=== PATIENT | male | born 1985 | race African-American/Black ===

== ENCOUNTER 2020-07-13 21:10 | Inpatient (IN) ==
[2020-07-13] MEDS ORDERED: SODIUM CHLORIDE 0.9% 1,000 ML IV STA (23:00)
[2020-07-13 23:42] LABS: Basophils # 0.1 10*3/uL (0.0-0.2); Basophils % 0.3 % (0.0-0.8); Hemoglobin 13.8 GM/DL (14.0-18.0); Immature Granulocytes % 0.9 %; Immature Granulocytes Absolute 0.24 #; Lymphocytes # 1.9 10*3/uL (1.4-4.0); Lymphocytes % 7.1 % (21.2-54.2); Mean Corpuscular HGB Conc 36.3 GM/DL (32-36); Mean Corpuscular Volume 95.5 FL (87-102); Monocytes % 8.4 % (1.7-12.7); Neutrophils % 83.3 % (38.7-73.9); Platelet Count 285 T/CUMM (130-400); Red Blood Count 3.98 MC/CUMM (3.8-5.5); Red Cell Distribution Width 12.2 % (9.3-17.3); White Blood Count 26.2 T/CUMM (4-12)
[2020-07-14 00:07] LABS: Rheumatoid Factor < 15 IU/ML (<15); Uric Acid 2.4 MG/DL (3.5-7.2)
[2020-07-14 00:08] LABS: Albumin 3.6 G/DL (3.4-5.0); Bilirubin,Total 0.6 MG/DL (0.2-1.0); Osmolality,Calculated 274.7 MOS/KG (273-304); Potassium 4.3 MMOL/L (3.5-5.1); Total Protein 7.8 G/DL (6.4-8.2)
[2020-07-14 01:04] LABS: Sedimentation Rate-Westergren 91 MM/HR (0-15)
[2020-07-14] MEDS ORDERED: KETOROLAC 30 MG/1 ML VIAL IV STA (01:48)
[2020-07-14 03:27] LABS: Band Neutrophils 2 % (0-10); Lymphocytes 9 % (20-55); Platelet Estimate Normal; Segmented Neutrophils 81 % (50-85); Total Cells Counted 100
[2020-07-14] MEDS ORDERED: ACETAMINOPHEN 325 MG TABLET PO PRN (04:40)
[2020-07-14] MEDS ORDERED: DOCUSATE SODIUM 100 MG CAPSULE PO PRN (04:40)
[2020-07-14] MEDS ORDERED: DEXTROSE 50% 25 GM/50 ML VIAL IV PRN (04:40)
[2020-07-14] MEDS ORDERED: GLUCAGON 1 MG VIAL IM PRN (04:40)
[2020-07-14] MEDS ORDERED: KETOROLAC 30 MG/1 ML VIAL IV PRN (04:52)
[2020-07-14] MEDS: cefTRIAXone 2,000 MG in SODIUM CHLORIDE 0.9% 100 ML IV SCH (05:15)
[2020-07-14 05:38] LABS: Blood, Urine Negative (Negative); Glucose,Urine (UA) Negative (Negative); Hyaline Casts,Urine 1 /LPF (0-3); Ketones,Urine Negative (Negative); Mucus,Urine Occasional /LPF (Occasional); Nitrite,Urine Negative (Negative); Protein,Urine 30 MG/DL; RBC,Urine 5 /HPF (0-4); Renal Epithelial Cells,Urine Occasional /HPF (<1); Squamous Epithelial Cell,Urine Occasional /HPF (0-10); Urine Appearance CLEAR (Clear); Urine Color Yellow (Yellow); Urine Specific Gravity 1.028 (1.001-1.035); Urine Urobilinogen < 2.0 EU/DL (0.2-1.0)
[2020-07-14 05:58] LABS: Bilirubin,Urine Small mg/dL (Negative)
[2020-07-14] MEDS: SODIUM CHLORIDE 0.9% 1,000 ML IV SCH ×3 (06:26→21:19)
[2020-07-14 06:50] LABS: Cyclic Citrull Peptide Interp Negative
[2020-07-14] MEDS ORDERED: INDOMETHACIN 50 MG CAPSULE PO SCH (09:00)
[2020-07-14] MEDS: predniSONE 20 MG TABLET PO SCH ×2 (10:05→21:18)
[2020-07-14] MEDS: DOXYCYCLINE HYCLATE INJ 100 MG in SODIUM CHLORIDE 0.9% 100 ML IV SCH ×2 (10:27→18:23)
[2020-07-14] MEDS: INDOMETHACIN 25 MG CAPSULE PO SCH ×2 (15:14→21:18)
[2020-07-15] MEDS: cefTRIAXone 2,000 MG in SODIUM CHLORIDE 0.9% 100 ML IV SCH (04:37)
[2020-07-15 05:22] LABS: Basophils # 0.1 10*3/uL (0.0-0.2); Basophils % 0.2 % (0.0-0.8); Hematocrit 34.6 VOL% (42.0-52.0); Hemoglobin 11.9 GM/DL (14.0-18.0); Immature Granulocytes % 1.5 %; Immature Granulocytes Absolute 0.51 #; Lymphocytes # 1.5 10*3/uL (1.4-4.0); Lymphocytes % 4.4 % (21.2-54.2); Mean Corpuscular HGB Conc 34.4 GM/DL (32-36); Mean Corpuscular Volume 97.7 FL (87-102); Mean Platelet Volume 10.6 FL (9.6-12.0); Monocytes % 6.2 % (1.7-12.7); Neutrophils % 87.7 % (38.7-73.9); Platelet Count 303 T/CUMM (130-400); Red Blood Count 3.54 MC/CUMM (3.8-5.5); Red Cell Distribution Width 12.1 % (9.3-17.3); White Blood Count 33.1 T/CUMM (4-12)
[2020-07-15 05:55] LABS: Band Neutrophils 2 % (0-10); Lymphocytes 5 % (20-55); Segmented Neutrophils 89 % (50-85); Total Cells Counted 100
[2020-07-15 05:56] LABS: Microcytosis 1+; Platelet Estimate Normal
[2020-07-15 06:00] LABS: Albumin 2.6 G/DL (3.4-5.0); Bilirubin,Total 0.6 MG/DL (0.2-1.0); Calcium 8.7 MG/DL (8.5-10.1); Osmolality,Calculated 279.4 MOS/KG (273-304); Potassium 4.4 MMOL/L (3.5-5.1); Total Protein 6.8 G/DL (6.4-8.2)
[2020-07-15] MEDS: DOXYCYCLINE HYCLATE INJ 100 MG in SODIUM CHLORIDE 0.9% 100 ML IV SCH ×2 (06:08→19:46)
[2020-07-15] MEDS: predniSONE 20 MG TABLET PO SCH (09:22)
[2020-07-15] MEDS: INDOMETHACIN 25 MG CAPSULE PO SCH (09:22)
[2020-07-15] MEDS: SODIUM CHLORIDE 0.9% 1,000 ML IV SCH ×3 (09:24→23:45)
[2020-07-15] MEDS: INDOMETHACIN 25 MG CAPSULE PO PRN ×2 (09:24→16:23)
[2020-07-15] MEDS: MEROPENEM 500 MG in SODIUM CHLORIDE 0.9% 100 ML IV SCH ×2 (15:02→20:44)
[2020-07-16] MEDS: ONDANSETRON 4 MG/2 ML VIAL IV PRN ×2 (00:45→09:17)
[2020-07-16] MEDS: MEROPENEM 500 MG in SODIUM CHLORIDE 0.9% 100 ML IV SCH ×2 (00:45→08:28)
[2020-07-16 05:57] LABS: Basophils # 0.1 10*3/uL (0.0-0.2); Basophils % 0.2 % (0.0-0.8); Hematocrit 31.2 VOL% (42.0-52.0); Hemoglobin 11.4 GM/DL (14.0-18.0); Immature Granulocytes Absolute 0.23 #; Lymphocytes # 2.5 10*3/uL (1.4-4.0); Lymphocytes % 10.4 % (21.2-54.2); Mean Corpuscular HGB Conc 36.5 GM/DL (32-36); Mean Corpuscular Volume 95.1 FL (87-102); Mean Platelet Volume 10.2 FL (9.6-12.0); Monocytes % 8.3 % (1.7-12.7); Neutrophils % 80.1 % (38.7-73.9); Platelet Count 323 T/CUMM (130-400); Red Blood Count 3.28 MC/CUMM (3.8-5.5); Red Cell Distribution Width 12.1 % (9.3-17.3); White Blood Count 24.2 T/CUMM (4-12)
[2020-07-16] MEDS: DOXYCYCLINE HYCLATE INJ 100 MG in SODIUM CHLORIDE 0.9% 100 ML IV SCH (06:05)
[2020-07-16 06:26] LABS: Hypochromasia Slight; Lymphocytes 11 % (20-55); Microcytosis Slight; Platelet Estimate Adequate; Segmented Neutrophils 79 % (50-85); Total Cells Counted 100
[2020-07-16 06:41] LABS: Calcium 8.6 MG/DL (8.5-10.1); Osmolality,Calculated 277.5 MOS/KG (273-304)
[2020-07-16 07:28] LABS: HIV Antigen/Antibody Result Nonreactive (Nonreactive)
[2020-07-16 07:31] LABS: Sedimentation Rate-Westergren 103 MM/HR (0-15)
[2020-07-16] MEDS ORDERED: ZALEPLON 5 MG CAPSULE PO PRN (08:56)
[2020-07-16] MEDS: SODIUM CHLORIDE 0.9% 1,000 ML IV SCH ×3 (09:47→21:40)
[2020-07-16 14:06] LABS: Hepatitis B Surface Ag Quant 0.28 Index; Hepatitis B Surface Ag Result Non-Reactive (NonReactive); Hepatitis C Virus Ab Quant 0.11 Index; Hepatitis C Virus Ab Result Non-Reactive (NonReactive)
[2020-07-16] MEDS: methylPREDNISolone SOD SUC 40 MG/1 ML VIAL IV SCH (15:16)
[2020-07-16] MEDS: cefTRIAXone 1,000 MG in SODIUM CHLORIDE 0.9% 100 ML IV SCH (15:16)
[2020-07-16] MEDS: PROMETHAZINE 25 MG/1 ML VIAL IM PRN (20:55)
[2020-07-17] MEDS: ONDANSETRON 4 MG/2 ML VIAL IV PRN (00:35)
[2020-07-17] MEDS: PROMETHAZINE 25 MG/1 ML VIAL IM PRN (02:47)
[2020-07-17 05:38] LABS: Basophils # 0.1 10*3/uL (0.0-0.2); Basophils % 0.2 % (0.0-0.8); Hematocrit 30.6 VOL% (42.0-52.0); Hemoglobin 10.9 GM/DL (14.0-18.0); Immature Granulocytes % 0.7 %; Immature Granulocytes Absolute 0.15 #; Lymphocytes # 2.5 10*3/uL (1.4-4.0); Lymphocytes % 11.3 % (21.2-54.2); Mean Corpuscular HGB Conc 35.6 GM/DL (32-36); Mean Corpuscular Volume 94.2 FL (87-102); Mean Platelet Volume 10.7 FL (9.6-12.0); Monocytes % 6.2 % (1.7-12.7); Neutrophils % 81.6 % (38.7-73.9); Platelet Count 360 T/CUMM (130-400); Red Blood Count 3.25 MC/CUMM (3.8-5.5); Red Cell Distribution Width 12.2 % (9.3-17.3); White Blood Count 22.4 T/CUMM (4-12)
[2020-07-17] MEDS: SODIUM CHLORIDE 0.9% 1,000 ML IV SCH (05:52)
[2020-07-17 05:58] LABS: Calcium 8.5 MG/DL (8.5-10.1); Osmolality,Calculated 278.4 MOS/KG (273-304)
[2020-07-17 06:00] LABS: Band Neutrophils 1 % (0-10); Hypochromasia 1+; Lymphocytes 10 % (20-55); Segmented Neutrophils 83 % (50-85); Total Cells Counted 100
[2020-07-17 06:01] LABS: Microcytosis Slight; Platelet Estimate Normal
[2020-07-17 07:03] LABS: Total Protein (Chem) 6.8 G/DL (6.4-8.3)
[2020-07-17 07:51] LABS: Sedimentation Rate-Westergren 93 MM/HR (0-15)
[2020-07-17] MEDS: cefTRIAXone 1,000 MG in SODIUM CHLORIDE 0.9% 100 ML IV SCH (08:24)
[2020-07-17] MEDS: methylPREDNISolone SOD SUC 40 MG/1 ML VIAL IV SCH (08:25)
[2020-07-17 08:49] LABS: Albumin (SPE) 3.8 G/DL (3.2-5.3); Albumin (SPE) Rel % 55.8 %; Alpha 1 (SPE) 0.4 G/DL (0.1-0.4); Alpha 1 (SPE) Rel % 6.1 %; Alpha 2 (SPE) 0.9 G/DL (0.4-1.0); Alpha 2 (SPE) Rel % 12.8 %; Beta (SPE) 0.8 G/DL (0.5-1.1); Beta (SPE) Rel % 11.7 %; Gamma (SPE) 0.9 G/DL (0.7-1.7); Gamma (SPE) Rel % 13.6 %
[2020-07-17 12:18] VITALS: BP 153/65
[2020-07-18 00:21] LABS: Ehrlichia Chaffeensis (HME)IgG <1:64 titer (<1:64)
== END 2020-07-17 12:38 | disposition home or self-care (01) | DRG 550 ==
LOC: N.EDINP 21:10 → N.ED 21:10 → N.5E 21:10 → SUATTDRO 07-14 04:40 → N.EDINP 07-14 07:53
PROVIDERS: ADMIT Family Medicine; ATTEND Hospitalist